=== PATIENT | female | born 1960 | race Caucasian/White ===

== ENCOUNTER 2016-10-06 17:55 | Emergency (ER) | payer SELFPAY ==
[~2016-10-06] VITALS: Ht 162.5 cm; Wt 67.1 kg
[~2016-10-06 17:55] MED LIST: ALBUTEROL0.09 MG/A2 INH; CIPRO500 MG PO; DAYPRO600 M1 PO; FLAGYL500 MG PO; FLUOXETINE10 M1; HYDROCODONE BIT1 T11 PO; INDOCIN50 MG PO; NKHM; PEPCID20 MG PO; PRILOSEC20 M1; SLEEP AID PO; VICODIN 5/500 505 MG PO; VITAMIN D400 I1 PO; VOLTAREN50 M1 PO; Vicodin 5/500 505 MG PO; XANAX0.25 MG PO; ZITHROMAX Z PA250 MG PO
[2016-10-06 17:59] VITALS: BP 129/83
[2016-10-06 18:16] LABS: BILIRUBIN NEGATIVE (NEGATIVE); BLOOD 1+ (NEGATIVE); CLARITY CLEAR (CLEAR); COLOR YELLOW (YELLOW); GLUCOSE NEGATIVE (NEGATIVE); KETONE NEGATIVE (NEGATIVE); LEUKO ESTERASE NEGATIVE (NEGATIVE); NITRITE NEGATIVE (NEGATIVE); PH 5.5 (5.0-9.0); PROTEIN NEGATIVE (NEGATIVE); SPECIFIC GRAVITY <= 1.005 (1.005-1.030); UROBILINOGEN 0.2 E.U./dl (0.2-1.0)
[2016-10-06 18:24] LABS: EPITHELIAL CELLS 0-2
[2016-10-06 18:25] LABS: BASO % 0.4 % (0.0-1.0); EOS # 0.2 10*3/uL (0.0-0.4); EOS % 2.6 % (1.0-4.0); HEMATOCRIT 44.1 % (37.0-47.0); HEMOGLOBIN 15.2 g/dl (12.0-16.0); LYMPH # 2.8 10*3/uL (1.3-4.4); LYMPH % 38.1 % (27.0-41.0); MEAN CELL VOLUME 87.8 fl (81.0-99.0); MEAN CORPUSCULAR HGB 30.3 pg (27.0-31.0); MEAN CORPUSCULAR HGB CONC 34.5 g/dl (33.0-37.0); MONO # 0.6 10*3/uL (0.1-1.0); MONO % 8.3 % (3.0-9.0); NEUT # 3.7 10*3/uL (2.3-7.9); NEUT % 50.5 % (47.0-73.0); PLATELET COUNT AUTOMATED 196 10*3/uL (130-400); RED BLOOD COUNT 5.02 10*6/uL (4.10-5.10); RED CELL DISTRI WIDTH 13.5 % (0-14.5); WHITE BLOOD COUNT 7.3 10*3/uL (4.8-10.8)
[2016-10-06 18:25] LABS: URINE REFLEX COMMENT YES (NO)
[2016-10-06 18:40] LABS: ALBUMIN 4.1 gm/dl (3.1-4.5); ALKALINE PHOSPHATASE 99 U/L (45-117); BILIRUBIN, TOTAL 0.3 mg/dl (0.2-1.0); BUN 15 mg/dl (7-24); CARBON DIOXIDE 29 mmol/L (21-32); CHLORIDE 105 mmol/L (98-107); EST GLOM FILT AFRICAN AMERICAN > 60 ml/min; GLUCOSE 88 mg/dL (65-99); POTASSIUM 4.1 mmol/L (3.5-5.1); SGOT/AST 19 IU/L (3-35); SGPT/ALT 24 U/L (12-78); SODIUM 144 mmol/L (136-145); TOTAL PROTEIN 7.6 gm/dL (6.4-8.2)
[2016-10-06] MEDS ORDERED: MIRALAX POWDER17 G1 PO (19:27)
== END 2016-10-06 19:44 | disposition home or self-care (01) ==
LOC: ED 17:55
PROVIDERS: Nurse Practitioner Family
DX: K59.00 Constipation, unspecified (principal); F17.200 Nicotine dependence, unspecified, uncomplicated; Z90.710 Acquired absence of both cervix and uterus; Z98.890 Other specified postprocedural states

== ENCOUNTER → 2019-06-10 | Outpatient (CLI) | payer SELFPAY ==
[~2019-06-10] MED LIST changes: +MIRALAX POWDER17 G1 PO
== END | disposition home or self-care (01) ==
LOC: US 13:54
DX: E04.2 Nontoxic multinodular goiter (principal)

== ENCOUNTER → 2019-10-29 | Day surgery (SDC) | payer SELFPAY ==
[~2019-10-29] VITALS: Ht 162.5 cm; Wt 61.2 kg
[~2019-10-29] MED LIST changes: +SERTRALINE HYD100 MG PO
[2019-10-29 08:44] VITALS: BP 112/62
[2019-10-29 09:46] VITALS: BP 135/114
[2019-10-29 10:00] VITALS: BP 90/51
[2019-10-29 10:17] VITALS: BP 91/48
== END | disposition home or self-care (01) ==
LOC: SDC 10-27 08:00
DX: D12.5 Benign neoplasm of sigmoid colon (principal); F32.9 Major depressive disorder, single episode, unspecified; K21.9 Gastro-esophageal reflux disease without esophagitis; Z79.899 Other long term (current) drug therapy; Z98.890 Other specified postprocedural states; Z87.891 Personal history of nicotine dependence; Z80.8 Family history of malignant neoplasm of other organs or systems; Z82.49 Family history of ischemic heart disease and other diseases of the circulatory system

== ENCOUNTER → 2019-11-16 | Outpatient (CLI) | payer SELFPAY ==
[2019-11-16 08:10] LABS: CREATININE 0.81 mg/dL (0.55-1.02)
== END | disposition home or self-care (01) ==
LOC: LAB 07:45 → CT 08:00
PROVIDERS: Surgery
DX: K76.89 Other specified diseases of liver (principal); K57.30 Diverticulosis of large intestine without perforation or abscess without bleeding; R19.7 Diarrhea, unspecified; Z90.49 Acquired absence of other specified parts of digestive tract; Z90.710 Acquired absence of both cervix and uterus

== ENCOUNTER → 2021-03-27 | Outpatient (CLI) | payer BC, OTHER | END | disposition home or self-care (01) | LOC: MAMMO 07:47 | PROVIDERS: ATTEND Internal Medicine | DX: Z12.31 Encounter for screening mammogram for malignant neoplasm of breast (principal) ==

== ENCOUNTER 2021-08-04 17:51 | Emergency (ER) | payer OTHER ==
[~2021-08-04] VITALS: Wt 65.8 kg
[2021-08-04 18:00] VITALS: BP 124/73
== END 2021-08-04 20:00 | disposition home or self-care (01) ==
LOC: ED 17:51
DX: S93.402A Sprain of unspecified ligament of left ankle, initial encounter (principal); Z79.899 Other long term (current) drug therapy; Z98.890 Other specified postprocedural states; Z90.710 Acquired absence of both cervix and uterus; W18.39XA Other fall on same level, initial encounter; Y93.89 Activity, other specified; Y92.89 Other specified places as the place of occurrence of the external cause; Y99.8 Other external cause status

== ENCOUNTER → 2021-11-09 | Day surgery (SDC) | payer OTHER ==
[~2021-11-09] VITALS: Ht 162.5 cm; Wt 65.8 kg
[~2021-11-09] MED LIST changes: +DICYCLOMINE HYD20 MG PO; +MIRTAZAPINE7.5 MG PO
[2021-11-09 09:40] VITALS: BP 107/75
[2021-11-09 11:05] VITALS: BP 101/58
[2021-11-09 11:20] VITALS: BP 108/65
[2021-11-09 11:35] VITALS: BP 112/68
== END | disposition home or self-care (01) ==
LOC: SDC 10-30 08:45
PROVIDERS: ATTEND Surgery
DX: Z09 Encounter for follow-up examination after completed treatment for conditions other than malignant neoplasm (principal); D12.2 Benign neoplasm of ascending colon; K58.9 Irritable bowel syndrome, unspecified; K21.9 Gastro-esophageal reflux disease without esophagitis; F32.9 Major depressive disorder, single episode, unspecified; Z96.652 Presence of left artificial knee joint; Z86.010 Personal history of colon polyps; K57.30 Diverticulosis of large intestine without perforation or abscess without bleeding; F17.210 Nicotine dependence, cigarettes, uncomplicated; Z79.899 Other long term (current) drug therapy

== ENCOUNTER → 2021-12-19 | Outpatient (CLI) | payer OTHER | END | disposition home or self-care (01) | LOC: US 10:30 | PROVIDERS: ATTEND Internal Medicine | DX: R30.0 Dysuria (principal); Z90.710 Acquired absence of both cervix and uterus ==

== ENCOUNTER 2022-01-23 10:17 | Emergency (ER) | payer OTHER ==
[~2022-01-23] VITALS: Ht 162.5 cm; Wt 65.8 kg
[~2022-01-23 10:17] MED LIST changes: +COLACE100 MG PO; +MIRTAZAPINE15 M2 PO; +ONDANSETRON HYDR4 M1 PO; +PERCOCET 5-3251 EACH PO; +WAL-SOM50 MG PO
[2022-01-23 10:23] VITALS: BP 126/60
[2022-01-23 12:52] LABS: BASO % 0.3 % (0.0-1.0); EOS # 0.2 10*3/uL (0.0-0.4); EOS % 2.6 % (1.0-4.0); HEMATOCRIT 45.9 % (37.0-47.0); LYMPH # 2.5 10*3/uL (1.3-4.4); LYMPH % 40.1 % (27.0-41.0); MEAN CELL VOLUME 87.9 fl (81.0-99.0); MEAN CORPUSCULAR HGB 29.3 pg (27.0-31.0); MEAN CORPUSCULAR HGB CONC 33.3 g/dl (33.0-37.0); MEAN PLATELET VOLUME 9.5 fl (9.6-12.3); MONO # 0.5 10*3/uL (0.1-1.0); MONO % 8.6 % (3.0-9.0); NEUT % 48.2 % (47.0-73.0); PLATELET COUNT AUTOMATED 254 10*3/uL (130-400); RED BLOOD COUNT 5.22 10*6/uL (4.10-5.10); RED CELL DISTRI WIDTH 13.2 % (0-14.5); WHITE BLOOD COUNT 6.2 10*3/uL (4.8-10.8)
[2022-01-23 13:06] LABS: ACT PARTIAL THROMBO TIME 30.1 SECONDS (20.0-32.1)
[2022-01-23 13:15] LABS: ALKALINE PHOSPHATASE 118 U/L (45-117); BUN 15 mg/dl (7-24); CHLORIDE 109 mmol/L (98-107); CREATININE 0.69 mg/dL (0.55-1.02); LIPASE 115 U/L (73-393); POTASSIUM 4.5 mmol/L (3.5-5.1); SGOT/AST 21 IU/L (3-35); SGPT/ALT 37 U/L (12-78); SODIUM 140 mmol/L (136-145); TOTAL PROTEIN 7.2 gm/dL (6.4-8.2)
[2022-01-23] MEDS ORDERED: PREDNISONE20 M1 PO (14:50)
[2022-01-23] MEDS ORDERED: PROVENTIL HFA6.7 GM INH (14:50)
== END 2022-01-23 15:18 | disposition home or self-care (01) ==
LOC: ED 10:17
PROVIDERS: Physician Assistant
DX: U07.1 COVID-19 (principal); J44.1 Chronic obstructive pulmonary disease with (acute) exacerbation; F17.210 Nicotine dependence, cigarettes, uncomplicated; F12.90 Cannabis use, unspecified, uncomplicated; Z90.49 Acquired absence of other specified parts of digestive tract; Z96.652 Presence of left artificial knee joint

== ENCOUNTER → 2022-09-12 | Outpatient (CLI) | payer OTHER ==
[~2022-09-12] MED LIST changes: +PREDNISONE20 M1 PO; +PROVENTIL HFA6.7 GM INH
== END | disposition home or self-care (01) ==
LOC: LAB 10:04
PROVIDERS: ATTEND Surgery
DX: D12.4 Benign neoplasm of descending colon (principal)

== ENCOUNTER → 2022-09-14 | Outpatient (CLI) | payer OTHER | END | disposition home or self-care (01) | LOC: CT 00:18 | PROVIDERS: ATTEND Surgery | DX: D12.4 Benign neoplasm of descending colon (principal) ==

== ENCOUNTER → 2023-05-01 | Outpatient (CLI) | payer OTHER | END | disposition home or self-care (01) | LOC: MAMMO 10:48 | PROVIDERS: ATTEND Internal Medicine | DX: Z12.31 Encounter for screening mammogram for malignant neoplasm of breast (principal); N64.89 Other specified disorders of breast ==

== ENCOUNTER → 2024-07-08 | Outpatient (CLI) | payer OTHER | END | disposition home or self-care (01) | LOC: MAMMO 06-08 11:00 | PROVIDERS: ATTEND Internal Medicine | DX: Z12.31 Encounter for screening mammogram for malignant neoplasm of breast (principal) ==